=== PATIENT | female | born 1960 | race Caucasian/White ===

== ENCOUNTER 2017-02-12 08:59 | Emergency (ER) | payer OTHER ==
[~2017-02-12 08:59] MED LIST: METH750T2 PO; NAPR-576 PO
[2017-02-12 09:01] VITALS: BP 125/63; PULSE 63; RESP 15; TEMP 98; O2SAT 98
[2017-02-12] MEDS ORDERED: LIDOCAINE 1%/EPINEPHrine 1:100,000 SOLN 20 ML VIAL INFIL ONE (09:30)
--- NOTE | 2017-02-12 09:45 | PD ---
HPI Chief Complaint: Skin Problem Time Seen by Provider: 09:15 Travel History International Travel<30 days: No Contact w/Intl Traveler<30days: No Traveled to known affect area: No History of Present Illness HPI 56-year-old female presents the emergency Department with a tender, erythematous, swollen area at the base of the left thumb for the past several days. Patient states it started as a hangnail and has gotten progressively more swollen, erythematous, and tender. She has no fever, chills, numbness, tingling, or drainage. Patient has had paronychia in the past. Patient has no known drug allergies. PFSH Past Medical History Menopausal: Yes : 2 Para: 2 Past Surgical History Section: Yes (1986, 1989) Gynecologic Surgery: Yes ([facility] 1986, 1989) Tonsillectomy: Yes Social History Alcohol Use: No Tobacco Use: No Substance Use: No Allergies-Medications (Allergen,Severity, Reaction): Coded Allergies: No Known Allergies (Verified , 06/21/14) Reported Meds & Prescriptions Reported Meds & Active Scripts Active Robaxin (Methocarbamol) 750 Mg Tab 750 Mg PO TID PRN Naproxen 500 Mg Tab 500 Mg PO BID Review of Systems Except as stated in HPI: all other systems reviewed are Neg General / Constitutional: No: Fever Eyes: No: Visual changes HENT: No: Headaches Cardiovascular: No: Chest Pain or Discomfort Respiratory: No: Shortness of Breath Gastrointestinal: No: Abdominal Pain Genitourinary: No: Dysuria Musculoskeletal: No: Pain Skin: Positive Lesions, No Rash Neurologic: No: Weakness Psychiatric: No: Depression Endocrine: No: Polydipsia Hematologic/Lymphatic: No: Easy Bruising Physical Exam Narrative GENERAL: Patient is in mild distress. SKIN: Warm and dry. Normal color. Normal turgor. The left thumb shows swelling, erythema and tenderness to the lateral base of the left thumbnail. There is no obvious pus pocket noted. I&D is initiated. See procedure note. HEAD: Atraumatic. Normocephalic. EYES: Pupils equal and round. No scleral icterus. No injection or drainage. ENT: No nasal bleeding or discharge. Mucous membranes pink and moist. Pharynx is clear. NECK: Trachea midline. Supple CARDIOVASCULAR: Regular rate and rhythm. RESPIRATORY: No accessory muscle use. MUSCULOSKELETAL: Extremities without clubbing, cyanosis, or edema. No obvious deformities. NEUROLOGICAL: Awake and alert. No obvious cranial nerve deficits. Motor grossly within normal limits. Five out of 5 muscle strength in the arms and legs. Normal speech. PSYCHIATRIC: Appropriate mood and affect; insight and judgment normal. Data Data Last Documented VS Vital Signs Date Time Temp Pulse Resp B/P Pulse Ox O2 Delivery O2 Flow Rate FiO2 02/12/17 09:01 98.0 63 15 125/63 98 Orders Lidocai-Epi 1%-1:100,000 Inj (Xylocaine- (02/12/17 09:30) MDM Medical Decision Making Medical Screen Exam Complete: Yes Emergency Medical Condition: Yes Differential Diagnosis Cellulitis. Abscess. Paronychia. Narrative Course Patient is medically stable at time of exam. I&D the paronychia is performed. See procedure note. Dressing is placed. Patient is placed on Bactrim DS twice a day 7 days. Patient also given Keflex 500 mg 3 times a day 7 days. Patient is to soak this area twice daily in warm soapy water and keep it covered for the next several days. Patient can take Tylenol or ibuprofen as needed for pain. Work note is given. Patient to follow up if symptoms do not improve or worsen as discussed. Procedures Procedure Narrative After the risks and benefits were discussed the following procedure was performed: INCISION AND DRAINAGE OF PARONYCHIA: The area was prepped and was sterilely draped. A digital block of 1 % Xylocaine with epi with a total number 3 mL was used to anesthetize the area. The area was properly anesthetized. A number 11 scalpel was used to make a 0.25-cm incision across the area of the paronychia. A moderate amount of pus was expressed. Sterile dressing applied. Patient advised to keep the dressing in place for two days. Diagnosis Primary Impression: Paronychia of thumb, left Referrals: Primary Care Physician Patient Instructions: General Instructions, Paronychia (ED) Departure Forms: Work Release Special Instructions: Patient is to keep left thumb clean and dry for the next 2 days. Additional Instructions: Patient is placed on Bactrim DS twice a day 7 days. Patient also given Keflex 500 mg 3 times a day 7 days. Patient is to soak this area twice daily in warm soapy water and keep it covered for the next several days. Patient can take Tylenol or ibuprofen as needed for pain. Work note is given. Patient to follow up if symptoms do not improve or worsen as discussed. Med/Other Pt SpecificInfo: Prescription(s) given, Wound Care Disposition: 01 DISCHARGE HOME Condition: Stable Aman Sosa Feb 12, 2017 09:45
[2017-02-12] MEDS ORDERED: BACT800T5 PO (09:54)
[2017-02-12] MEDS ORDERED: IBUP-232 PO (09:54)
[2017-02-12] MEDS ORDERED: CEPH500C PO (09:54)
[2017-02-12] MEDS ORDERED: HYDR-3533 PO (20:18)
== END 2017-02-12 09:58 | disposition home or self-care (01) ==
LOC: NEPD 08:59
DX: L03.012 Cellulitis of left finger (principal)
CPT/HCPCS: 10060

== ENCOUNTER 2017-02-12 19:19 | Emergency (ER) | payer OTHER ==
[~2017-02-12 19:19] MED LIST changes: +BACT800T5 PO; +CEPH500C PO; +IBUP-232 PO
[2017-02-12 19:21] VITALS: BP 122/67; PULSE 66; RESP 16; TEMP 98; O2SAT 99
--- NOTE | 2017-02-12 20:10 | PD ---
HPI Chief Complaint: Wound/Suture/Staple Re-Check Time Seen by Provider: 20:00 Travel History International Travel<30 days: No Contact w/Intl Traveler<30days: No Traveled to known affect area: No History of Present Illness HPI 56-year-old female presents for wound recheck. The patient was seen here earlier today and diagnosed with a paronychia to the left thumb. Incision and drainage was performed and she was started on Bactrim and Keflex. She reports that once the local anesthesia wore off she has had pain and throbbing in her left thumb. She took 2 doses of ibuprofen at home with a throbbing pain persisted which prompted the reevaluation. She has been using antibiotics as prescribed. No other complaints. PFSH Past Medical History Medical History: Denies Significant Hx ?: Not Menopausal: Yes : 2 Para: 2 Past Surgical History Section: Yes (1986, 1989) Gynecologic Surgery: Yes ([facility] 1986, 1989) Tonsillectomy: Yes Other Surgery: Yes (I&D) Social History Alcohol Use: No Tobacco Use: No Substance Use: No Allergies-Medications (Allergen,Severity, Reaction): Coded Allergies: No Known Allergies (Verified , 06/21/14) Reported Meds & Prescriptions Reported Meds & Active Scripts Active Lortab (Hydrocodone-Acetaminophen) 5-325 Mg Tab 1 Tab PO Q6H PRN Ibuprofen 600 Mg Tab 600 Mg PO Q6H PRN Cephalexin 500 Mg Cap 500 Mg PO Q8H Bactrim DS (Sulfamethoxazole-Trimethoprim) 800-160 Mg Tab 1 Tab PO BID Review of Systems General / Constitutional: No: Fever Musculoskeletal: Positive: Pain Skin: Positive Other (pain, soft tissue swelling) Physical Exam Narrative GENERAL: Well-developed well-nourished female in no acute distress SKIN: Warm and dry. Exam of the left thumb reveals tenderness and soft tissue swelling in the finger pad of the left thumb. There is no tenderness to palpation along the flexor tendon sheath of the left thumb. CARDIOVASCULAR: Regular rate and rhythm. No murmur appreciated. RESPIRATORY: No accessory muscle use. Clear to auscultation. Breath sounds equal bilaterally. GASTROINTESTINAL: Abdomen soft, non-tender, nondistended. Hepatic and splenic margins not palpable. MUSCULOSKELETAL: No obvious deformities. Skin as noted above. NEUROLOGICAL: Awake and alert. No obvious cranial nerve deficits. Motor grossly within normal limits. Normal speech. PSYCHIATRIC: Appropriate mood and affect; insight and judgment normal. Data Data Last Documented VS Vital Signs Date Time Temp Pulse Resp B/P Pulse Ox O2 Delivery O2 Flow Rate FiO2 02/12/17 19:58 66 16 02/12/17 19:21 98.0 122/67 99 Room Air Orders Lidocaine Pf 1% Inj (Xylocaine-Mpf 1% In (02/12/17 20:15) Bupivacaine Pf 0.5% Inj (Marcaine Pf 0.5 (02/12/17 20:15) Wound Culture And Gram Stain (02/12/17 20:06) [facility] Medical Decision Making Medical Screen Exam Complete: Yes Emergency Medical Condition: Yes Medical Record Reviewed: Yes Differential Diagnosis felon, paronychia, cellulitis, flexor tenosynovitis Narrative Course 48-year-old female returns with throbbing pain in the left thumb, earlier today she had incision and drainage of a paronychia to left thumb. On examination she has no obvious tightness and soft tissue swelling in the left thumb finger pad consistent with a felon. The patient verbally consents to incision and drainage. Wound culture was performed. Packing was placed. Recommended recheck in 2-3 days. She is stable for discharge. Procedures Procedure Narrative INCISION AND DRAINAGE OF ABSCESS: The area was prepped and was sterilely draped. Digital block performed utilizing mixture of 0.5% Marcaine and 1% lidocaine. A 0.5 cm incision was made along the medial aspect of the left thumb pad. Wound culture was performed. The wound was irrigated. Packing was placed. Diagnosis Primary Impression: Felon of finger of left hand Additional Instructions: Continue taking antibiotics as previously prescribed. Take ibuprofen for pain. Lortab for breakthrough pain. Do not drive or drink alcohol when taking Lortab. Return in 2-3 days for wound recheck. Med/Other Pt SpecificInfo: Prescription(s) given, Wound Care Scripts Hydrocodone-Acetaminophen (Lortab)5-325 Mg Tab1 Tab PO Q6H PRN (PAIN) #12 TAB Ref 0 Prov:Jeronimo Gonzalez MD 02/12/17 Disposition: 01 DISCHARGE HOME Condition: Stable Donell Waters Feb 12, 2017 20:10
[2017-02-12] MEDS ORDERED: BUPIVACAINE HCL PF 0.5% 10 ML VIAL INFIL ONE (20:15)
[2017-02-12] MEDS ORDERED: LIDOCAINE HCL 1% PF 30 ML VIAL INFIL ONE (20:15)
[2017-02-12] MEDS ORDERED: HYDR-3533 PO (20:18)
== END 2017-02-12 21:44 | disposition home or self-care (01) ==
LOC: NEPD 19:19
DX: L03.012 Cellulitis of left finger (principal); Z79.899 Other long term (current) drug therapy
CPT/HCPCS: 26011; 87070; 87205

== ENCOUNTER 2017-02-14 12:11 | Emergency (ER) | payer OTHER ==
[~2017-02-14] VITALS: Ht 160 cm; Wt 54.0 kg
[~2017-02-14 12:11] MED LIST changes: +HYDR-3533 PO; -METH750T2 PO; -NAPR-576 PO
[2017-02-14 12:12] VITALS: BP 105/67; PULSE 74; RESP 18; TEMP 98.4; O2SAT 100
--- NOTE | 2017-02-14 12:22 | PD ---
Physical Exam Date Seen by Provider: Feb 14, 2017 Time Seen by Provider: 12:20 Narrative 56 y/o female with follow-up left thumb abscess/felon with recent I+D with packing placed. Feels only slightly better. Pain 7/10. On ABX. Vital signs reviewed. Patient stable. Awaiting Bed placement. Data Data Last Documented VS Vital Signs Date Time Temp Pulse Resp B/P Pulse Ox O2 Delivery O2 Flow Rate FiO2 02/14/17 12:12 98.4 74 18 105/67 100 MDM Medical Record Reviewed: Yes Supervised Visit with FAWN: Yes Condition: Stable Aman Sosa Feb 14, 2017 12:22
--- NOTE | 2017-02-14 15:07 | PD ---
HPI Chief Complaint: Skin Problem Time Seen by Provider: 15:05 Travel History International Travel<30 days: No Contact w/Intl Traveler<30days: No Traveled to known affect area: No History of Present Illness HPI 56-year-old female presents to emergency department for packing removal and reevaluation after incision and drainage of a felon to her left thumb on Tuesday. She is taking antibiotics as prescribed. Reports some improvement in symptoms, but reports decreased range of motion at the thumb joint. The finger is swollen and without erythema. Denies fever, vomiting. Has been taking ibuprofen and Percocet for symptom management. Symptoms are moderate in severity. No known allergies. Has no other medical complaints. No other modifying factors or associated signs and symptoms. PFSH Past Medical History Tetanus Vaccination: < 5 Years ?: Not Menopausal: Yes : 2 Para: 2 Past Surgical History Section: Yes (1986, 1989) Gynecologic Surgery: Yes ([facility] 1986, 1989) Tonsillectomy: Yes Other Surgery: Yes (I&D) Social History Alcohol Use: No Tobacco Use: No Substance Use: No Allergies-Medications (Allergen,Severity, Reaction): Coded Allergies: No Known Allergies (Verified , 02/14/17) Reported Meds & Prescriptions Reported Meds & Active Scripts Active Cephalexin 500 Mg Cap 500 Mg PO Q8H Bactrim DS (Sulfamethoxazole-Trimethoprim) 800-160 Mg Tab 1 Tab PO BID Review of Systems Except as stated in HPI: all other systems reviewed are Neg Physical Exam Narrative GENERAL: Well-nourished, well-developed female patient, in no acute distress; afebrile, nontoxic-appearing SKIN: Warm and dry. Left thumb is edematous and with out erythema; decreased range of motion at the thumb joint; sensory intact; less than 3 second cap refill; iodoform packing intact to the incision area; no drainage noted. HEAD: Atraumatic. Normocephalic. EYES: Pupils equal and round. No scleral icterus. No injection or drainage. ENT: Mucosa pink and moist. Airway patent. NECK: Trachea midline. CARDIOVASCULAR: Regular rate. RESPIRATORY: No accessory muscle use. GASTROINTESTINAL: Flat. MUSCULOSKELETAL: No obvious deformities. No clubbing. No cyanosis. No edema. NEUROLOGICAL: Awake and alert. Oriented 3. No obvious cranial nerve deficits. Motor grossly within normal limits. Normal speech. PSYCHIATRIC: Appropriate mood and affect; insight and judgment normal. Data Data Last Documented VS Vital Signs Date Time Temp Pulse Resp B/P Pulse Ox O2 Delivery O2 Flow Rate FiO2 02/14/17 16:38 15 02/14/17 12:12 98.4 74 105/67 100 Orders Finger ([id number]) (02/14/17 ) Ketorolac Inj (Toradol Inj) (02/14/17 15:15) MDM Medical Decision Making Medical Screen Exam Complete: Yes Emergency Medical Condition: Yes Medical Record Reviewed: Yes Differential Diagnosis Abscess packing removal, abscess recheck, osteomyelitis Narrative Course 56-year-old female percent for packing removal of her left thumb after incision and drainage of a felon on Tuesday. Patient reports some improvement in symptoms. She does have decreased range of motion of the thumb joint and reports severe pain. Patient is afebrile and nontoxic-appearing. She denies fever, vomiting. I will x-ray the thumb to rule out osteomyelitis. Toradol administered in the ER. Left thumb x-ray ordered. 1658: Left thumb x-ray concludes Last 24 hours Impressions Finger X-Ray 02/14/17 0000 Signed Impressions: Service Date/Time: Tuesday, February 14, 2017 15:26 - CONCLUSION: Soft tissue swelling without evidence of bony abnormality or soft tissue gas. Hawk Chandra MD Instructed patient to continue medications as prescribed. Instructed patient to follow up with primary care provider. Patient verbalizes understanding and agreement with treatment plan. Patient is medically cleared and stable for discharge. Discussed reasons to return to the emergency department. Patient agrees with treatment plan. The patients vital signs are stable and the patient is stable for outpatient follow-up and treatment. Patient discharged home, stable and in no acute distress. Diagnosis Primary Impression: Encounter for abscess packing removal Referrals: Hand Surgeon Primary Care Physician Patient Instructions: Abscess (ED), General Instructions Departure Forms: Tests/Procedures, Work Release Enter return to work date: Feb 18, 2017 Additional Instructions: Complete full course of antibiotics Warm compresses to the affected area Keep area clean and dry Ibuprofen or Tylenol as directed and as needed for pain and inflammation Follow-up with primary care provider Return to emergency department immediately with worsening of symptoms Med/Other Pt SpecificInfo: No Change to Meds, No Meds Exist/No RX given Disposition: 01 DISCHARGE HOME Condition: Stable Shabnam Barnes Feb 14, 2017 15:07
[2017-02-14] MEDS ORDERED: KETOROLAC TROMETHAMINE 60 MG/2 ML (IM) VIAL IM ONE (15:15)
[2017-02-14 16:38] VITALS: RESP 15
--- NOTE | 2017-02-14 16:51 | RADRPT ---
EXAM DATE/TIME: 02/14/2017 15:26 [facility] COMPARISON: No previous studies available for comparison. INDICATIONS : Left hand, first digit inflammation. Possible abcess. MEDICAL HISTORY : None. SURGICAL HISTORY : None. ENCOUNTER: Initial ACUITY: 3 days PAIN SCORE: 10/10 LOCATION: Left hand, first digit. FINDINGS: Examination of the first digit of the left hand demonstrates no evidence of fracture or dislocation. No radiopaque foreign bodies are seen. Soft tissue swelling is noted. There is no evidence of soft t issue gas. CONCLUSION: Soft tissue swelling without evidence of bony abnormality or soft tissue gas. Hawk Chandra MD on February 14, 2017 at 16:48 Board Certified Radiologist. This report was verified electronically.
== END 2017-02-14 17:10 | disposition home or self-care (01) ==
LOC: NEPK 12:11
DX: Z48.01 Encounter for change or removal of surgical wound dressing (principal)
CPT/HCPCS: 73140; 96372; 99284; J1885